=== PATIENT | female | born 1980 | race Caucasian/White ===

== ENCOUNTER 2019-09-22 18:57 | Emergency (ER) | payer MEDICARE, SELFPAY ==
[2019-09-22 19:01] VITALS: BP 106/82; PULSE 111; RESP 20; TEMP 36.9; O2SAT 100
--- NOTE | 2019-09-22 19:01 | ED.GENADULT ---
HPI - General Adult General Chief complaint: Skin/Abscess/Foreign Body Stated complaint: cuts on legs and rash Time Seen by Provider: 09/22/19 19:01 Source: patient Mode of arrival: ambulatory Limitations: no limitations History of Present Illness HPI narrative: 38-year-old female patient presents to the [facility] with complaints of a rash that started about 3 to 4 days ago that has gotten increasingly worse. Patient states that the rash is worse at nighttime. Patient states that she noticed it first on her left hand and now it has progressed to her chest and abdomen especially on her left flank as well as her neck and upper back. Patient states it is very itchy. Patient denies coming into contact with any type of poison rigoberto. Patient denies having any pets. Patient states that currently she is in her apartment alone and does not have anybody else living with her at this time. Patient also complaining about 2 wounds that she has on her left lower extremity. 1 of them is right behind her left ankle and the other one is right below her left knee. Patient states that the wounds have been there for about 2 weeks. Patient states she cut herself on her legs about 2 weeks ago and states that they are just not healing. Patient does have history of Crohn's disease and states that she typically does not heal fast anyway and does have multiple scars all over bilateral lower extremities from previous wounds in the past. Patient states that she has just been cleaning it with hydrogen peroxide and putting Band-Aids over it denies using any type of antibiotic ointment over the wounds. Denies any fevers, chest pain, shortness of breath, abdominal pain, nausea, vomiting or diarrhea. Denies any discharge coming from the wounds. Related Data Home Medications Medication Instructions Recorded Confirmed dextroamphetamine-amphetamine 30 mg PO DAILY 09/22/19 09/22/19 [Adderall XR] lorazepam 0.5 mg PO BID PRN 09/22/19 09/22/19 tramadol 50 mg PO Q6H PRN 09/22/19 09/22/19 zolpidem [Ambien] 10 mg PO HS PRN 09/22/19 09/22/19 Allergies Allergy/AdvReac Type Severity Reaction Status Date / Time amoxicillin Allergy Unknown throat Verified 09/22/19 19:02 closes Review of Systems Review of Systems: Narrative: CONSTITUTIONAL: Denies fever, chills, or sweats. EYES: Denies visual changes, redness, or discharge. ENT: Denies rhinorrhea, congestion, sore throat, or otalgia. CARDIOVASCULAR: Denies chest pain, palpitations, or edema. RESPIRATORY: Denies cough or dyspnea. GASTROINTESTINAL: Denies abdominal pain, nausea, vomiting, or diarrhea. GENITOURINARY: Denies dysuria or hematuria. SKIN: Positive rash over body with itching. +2 wounds to left lower extremity MUSCULOSKELETAL: Denies back pain, joint pain, or myalgia. NEUROLOGIC: Denies headache, numbness, or weakness. PSYCHIATRIC: Denies anxiety or depression. [facility] Past Medical History Medical History (Updated 09/22/19 @ 19:25 by MATTHEW Bah) Anxiety Crohn's disease Ileostomy in place Restless leg syndrome Surgical History Surgical History (Updated 09/22/19 @ 19:12 by MATTHEW Bah) H/O breast augmentation H/O colectomy Comments At the time of my signature I agree with nursing past medical history, surgical, social, and family history. There is no relevant family history pertinent to the presenting complaint. Exam Narrative: Exam Narrative: GENERAL: Well-appearing, well-nourished, and in no acute distress. HEAD: Normocephalic, atraumatic. EYES: PERRLA and EOMI. ENT: Nares clear, no rhinorrhea or epistaxis. Mucous membranes moist. NECK: Supple. No lymphadenopathy CHEST: Clear to auscultation. No respiratory distress. HEART: Regular rate and rhythm. No murmur heard. Normal peripheral pulses. ABDOMEN: Soft, nontender, nondistended, normal active bowel sounds. EXTREMITIES: Normal range of motion. No edema. SKIN: Patient has 2 circular wounds first 1 noted right behind
== END 2019-09-22 19:30 | disposition home or self-care (01) ==
PROVIDERS: Emergency Provider Nurse Practitioner Family
DX: S81.802A Unspecified open wound, left lower leg, initial encounter (principal); W57.XXXA Bitten or stung by nonvenomous insect and other nonvenomous arthropods, initial encounter
CPT/HCPCS: 99213; G0463

== ENCOUNTER 2020-11-25 15:06 | Emergency (ER) | payer MEDICARE, SELFPAY ==
[2020-11-25 15:14] VITALS: BP 115/78; PULSE 94; RESP 18; TEMP 37.1; O2SAT 100
--- NOTE | 2020-11-25 15:14 | ED.SKABFB ---
HPI - Skin/Abscess/Foreign Bdy General Chief complaint: Skin/Abscess/Foreign Body Stated complaint: implant in face hurting Time Seen by Provider: 11/25/20 15:14 Source: patient and RN notes reviewed History of Present Illness HPI narrative: Patient is a 40-year-old female who presents the urgent care with complaints of redness and pain to the right cheek. Patient had a facial piercing to the right cheek placed approximately 8 days ago. Patient states that then became more red and swollen yesterday. Patient denies of any fevers, nausea, vomiting. States that she has been taking Tylenol for the pain. No other acute complaints. No acute distress noted. Patient aware of the plan of care. Some parts of this dictation were generated by voice recognition software and may contain typographical and/or grammatical inaccuracies. Related Data Home Medications Medication Instructions Recorded Confirmed dextroamphetamine-amphetamine 30 mg PO DAILY 09/22/19 11/25/20 [Adderall XR] Allergies Allergy/AdvReac Type Severity Reaction Status Date / Time amoxicillin Allergy Unknown throat Verified 11/25/20 15:13 closes Review of Systems Review of Systems: Narrative: CONSTITUTIONAL: Denies fever, chills, or sweats. EYES: Denies visual changes, redness, or discharge. ENT: Denies rhinorrhea, congestion, sore throat, or otalgia. CARDIOVASCULAR: Denies chest pain, palpitations, or edema. RESPIRATORY: Denies cough or dyspnea. GASTROINTESTINAL: Denies abdominal pain, nausea, vomiting, or diarrhea. GENITOURINARY: Denies dysuria or hematuria. SKIN: Reports of redness and swelling in the right cheek MUSCULOSKELETAL: Denies back pain, joint pain, or myalgia. NEUROLOGIC: Denies headache, numbness, or weakness. All other systems reviewed are negative, except as documented in HPI. [facility] Past Medical History Medical History (Updated 11/25/20 @ 15:26 by MATTHEW Kang) Anxiety Crohn's disease Ileostomy in place Restless leg syndrome Surgical History Surgical History (Updated 09/22/19 @ 19:12 by MATTHEW Bah) H/O breast augmentation H/O colectomy Comments At the time of my signature, I reviewed and agree with the nursing past medical, surgical, social, and family history. There is no relevant family history pertinent to the patient complaint. Exam Narrative: Exam Narrative: GENERAL: This is a well-nourished, well-developed patient, in no apparent distress. HEAD: normocephalic, atraumatic. EYES: PERRL. Sclera clear/white. Vision is grossly intact. EARS: External ears normal NOSE: External nose normal with no obvious nasal discharge, nares without redness, no rhinorrhea. THROAT: Mucous membranes moist NECK: Neck supple CARDIOVASCULAR: Regular rate and rhythm without murmurs, gallops, or rubs. RESPIRATORY: Clear to auscultation. Breath sounds equal bilaterally. No wheezes, rales, or rhonchi. SKIN: 2 x 2 centimeter of erythema and mild edema surrounding a facial implant/piercing to the right upper cheek with moderate tenderness, no drainage NEURO: awake, alert, and oriented to person, place and time. There were no obvious focal neurologic abnormalities. EXTREMITIES: No clubbing, cyanosis, or edema. Course Vital Signs Vital signs: Vital Signs Temperature 98.7 F 11/25/20 15:14 Pulse Rate 94 11/25/20 15:14 Respiratory Rate 18 11/25/20 15:14 Blood Pressure 115/78 11/25/20 15:14 Pulse Oximetry 100 11/25/20 15:14 Temperature 98.7 F 11/25/20 15:14 Pulse Rate 94 11/25/20 15:14 Respiratory Rate 18 11/25/20 15:14 Blood Pressure 115/78 11/25/20 15:14 Pulse Oximetry 100 11/25/20 15:14 Reviewed MDM - Skin/Abscess/Foreign Bdy MDM Narrative Medical decision making narrative: Advised the patient to complete the antibiotic regimen as prescribed. Make sure you are eating and drinking with the medication. Use plain Dial soap and water to clean the region. May be bertrand to remove the pi
[2020-11-25 15:20] VITALS: BP 115/78; PULSE 94; RESP 18; TEMP 37.1; O2SAT 100
== END 2020-11-25 15:30 | disposition home or self-care (01) ==
PROVIDERS: Emergency Provider Nurse Practitioner Family; PCP Internal Medicine
DX: S01.84XA Puncture wound with foreign body of other part of head, initial encounter (principal); X58.XXXA Exposure to other specified factors, initial encounter; K50.90 Crohn's disease, unspecified, without complications; G25.81 Restless legs syndrome
CPT/HCPCS: 99213; G0463